=== PATIENT | female | born 1965 | race Caucasian/White ===

== ENCOUNTER → 2017-01-30 | Outpatient (CLI) | payer BC ==
[2017-01-30 09:58] LABS: CHLORIDE,CL 106 mmol/L (98-110); SODIUM,NA 141 mmol/L (136-146)
--- NOTE | 2017-01-30 15:55 | CR ---
EXAMINATION: Right foot HISTORY: Pain COMPARISON: None TECHNIQUE: 2 views FINDINGS/IMPRESSION: Mild osteophyte formation and degenerative changes are noted within the midfoot and hindfoot. There is no fracture or acute osseous abnormality demonstrated. Bone mineralization a ppears normal to mildly osteopenic.
== END ==
LOC: MW.CHRC 09:09
PROVIDERS: ATTEND Family Medicine
DX: M79.672 Pain in left foot (principal); I10 Essential (primary) hypertension; E78.00 Pure hypercholesterolemia, unspecified; E11.9 Type 2 diabetes mellitus without complications; G89.4 Chronic pain syndrome; M25.775 Osteophyte, left foot
CPT/HCPCS: 36415; 73620-26-LT; 73620-LT; 80053; 80061; 80305; 83036

== ENCOUNTER → 2017-02-20 | Outpatient (CLI) | payer BC ==
--- NOTE | 2017-02-20 16:44 | CR ---
EXAMINATION: Bilateral feet HISTORY: Pain COMPARISON: 01/30/2017 TECHNIQUE: 2 views bilateral FINDINGS: There is no acute osseous abnormality, dislocation, or fracture identified. Bone mineraliz ation and joint spaces appear normal. There is a moderate right plantar calcaneal spur. There is mod erate left pes planus. Anterior and posterior talar osteophytes are noted within the left foot. IMPRESSION: 1. Degenerative changes without acute findings. 2. Moderate left and minimal right pes planus. 3. Prominent left anterior and posterior talar osteophytes. 4. No acute findings.
== END ==
LOC: MW.CHPOD 13:26
PROVIDERS: ATTEND Podiatrist Foot & Ankle Surgery
DX: M79.672 Pain in left foot (principal); M21.42 Flat foot [pes planus] (acquired), left foot; M25.775 Osteophyte, left foot
CPT/HCPCS: 736202650; 73620-50

== ENCOUNTER 2019-04-07 07:54 | Day surgery (SDC) | payer BC ==
[~2019-04-07 07:54] MED LIST: Lactated Ringers 1,000 ML IV SCH
--- NOTE | 2019-04-07 08:36 | PCM.PREANE ---
Preanesthetic Assessment - Anesthesia/Transfusion/Family Hx Anesthesia History: Prior Anesthesia Without Reaction Other Type of Anesthesia Reaction Comment: "hard time catching my breath when I wake up" Family History of Anesthesia Reaction: No Transfusion History: No Prior Transfusion(s) - Review of Systems General: No Symptoms Pulmonary: Cough Cardiovascular: No Symptoms Gastrointestinal: No Symptoms Neurological: No Symptoms Other: Reports: None - Physical Assessment NPO Status Date: 04/07/19 NPO Status Time: 06:00 O2 Sat by Pulse Oximetry: 95 Respiratory Rate: 16 Vital Signs: Last Vital Signs Temp 97.3 F 04/07/19 08:05 Pulse 81 04/07/19 08:05 Resp 16 04/07/19 08:05 BP 128/78 04/07/19 08:05 Pulse Ox 95 04/07/19 08:05 Height: 5 ft 5 in Weight: 90.265 kg ASA Class: 3 Mental Status: Alert & Oriented x3 Airway Class: Mallampati = 1 Dentition: Reports: Normal Dentition ROM/Head Extension: Full Lungs: Clear to Auscultation, Normal Respiratory Effort Cardiovascular: Regular Rate, Regular Rhythm - Allergies Allergies/Adverse Reactions: Allergies Allergy/AdvReac Type Severity Reaction Status Date / Time No Known Allergies Allergy Verified 04/02/19 07:52 - Blood Blood Available: No - Anesthesia Plan Pre-Op Medication Ordered: None - Acknowledgements Anesthesia Type Planned: MAC Pt an Appropriate Candidate for the Planned Anesthesia: Yes Alternatives and Risks of Anesthesia Discussed w Pt/Guardian: Yes Pt/Guardian Understands and Agrees with Anesthesia Plan: Yes Additional Comments: PMH: htn, copd, dm2, periph neuropathy, smoker, chronic oxycontin use PLAN: tiva PreAnesthesia Questionnaire HEENT History: Reports: Other (See Below) Other HEENT History: wears glasses Cardiovascular History: Reports: Hypertension Respiratory History: Reports: COPD Other Respiratory History: smoker, 1 PPD x 30 years Gastrointestinal History: Reports: None Genitourinary History: Reports: None 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: Reports: None Musculoskeletal History: Reports: Back Pain, Chronic, Fracture, Osteoarthritis Other Musculoskeletal History: DDD Neurological History: Reports: Neuropathy, Diabetic Psychiatric History: Reports: Depression Endocrine/Metabolic History: Reports: Diabetes, Type II, Obesity/BMI 30+ Hematologic History: Reports: None Immunologic History: Reports: None Oncologic (Cancer) History: Reports: None Dermatologic History: Reports: None - Past Surgical History Head Surgeries/Procedures: Reports: None HEENT Surgical History: Reports: Cataract Surgery Cardiovascular Surgical History: Reports: None Respiratory Surgical History: Reports: None GI Surgical History: Reports: Hernia, Abdominal Other GI Surgeries/Procedures: hx umbilical hernia repair Female Surgical History: Reports: Oophorectomy Other Female Surgeries/Procedures: laparotomy with oophorectomy Endocrine Surgical History: Reports: None Neurological Surgical History: Reports: None Musculoskeletal Surgical History: Reports: Knee Replacement, ORIF Other Musculoskeletal Surgeries/Procedures:: ORIF right ulna, Rt TKA Oncologic Surgical History: Reports: None Dermatological Surgical History: Reports: Other (See Below) - History Comment History Comment: Hx of morbid obesity with 130# weight loss due to diet and exercise programs/changes. - SUBSTANCE USE Smoking Status *Q: Current Every Day Smoker Tobacco Use Within Last Twelve Months: Cigarettes Recreational Drug Use History: No - HOME MEDS Home Medications: Home Meds Celecoxib 200 mg PO DAILY 03/21/16 [History] DULoxetine HCl [Cymbalta] 2 tab PO BEDTIME 03/21/16 [History] Gabapentin [Neurontin] 600 mg PO TID 03/21/16 [History] Glimepiride [Amaryl] 2 mg PO DAILY 03/21/16 [History] Telmisartan/Hydrochlorothiazid [Telmisartan-Hctz 80-25 mg Tab] 1 tab PO DAILY [History] amLODIPine [Norvasc] 5 mg PO DAILY 03/21/16 [History] metFORMIN HCl [Fortamet] 1,000 mg PO BID 03/21/16 [History] Albuterol [Ventolin HFA] 2 puff INH ASDIRECTED PRN 04/02/19 [History] Diclofenac Sodium [Voltaren 1% Gel] 1 applic TOP ASDIRECTED PRN 04/02/19 [ History] Ezetimibe 10 mg PO DAILY 04/02/19 [History] Metoprolol Succinate 50 mg PO DAILY 04/02/19 [History] Mupirocin Calcium [Mupirocin] 1 applic TOP ASDIRECTED PRN 04/02/19 [History] Naloxone HCl [Narcan] 1 spray JEANA ASDIRECTED PRN 04/02/19 [History] fentaNYL [Duragesic] 1 patch TRDERM ASDIRECTED 04/02/19 [History] oxyCODONE HCl [Oxycodone HCl] 15 mg PO Q4H PRN 04/02/19 [History] - CURRENT (IN HOUSE) MEDS Current Meds: Current Medications Lactated Ringer's (Ringers, Lactated) 1,000 mls @ 125 mls/hr IV ASDIRECTED [facility] Last Admin: 04/07/19 08:15 Dose: 125 mls/hr
[2019-04-07] MEDS ORDERED: Midazolam 1 MG/ML 2 ML SDV ONE (09:59)
[2019-04-07] MEDS ORDERED: fentaNYL 100 MCG/2 ML SDV ONE (09:59)
[2019-04-07] MEDS ORDERED: Lidocaine 2% 5 ML SDV ONE (09:59)
[2019-04-07] MEDS ORDERED: Propofol 200 MG/20 ML SDV ONE ×2 (10:01→10:09)
--- NOTE | 2019-04-07 10:37 | PCM.OPNOTE ---
- General Post-Op/Procedure Note Date of Surgery/Procedure: 04/07/19 Operative Procedure(s): colonoscopy w bx Findings: see dict [id number] Pre Op Diagnosis: scrn colonoscopy Post-Op Diagnosis: polyp Anesthesia Technique: Moderate Sedation Primary Surgeon: Tk León Pathology: 15 cm when scope pulled out Complications: None Condition: Good
--- NOTE | 2019-04-07 11:07 | PCM.POSTAN ---
POST ANESTHESIA ASSESSMENT - MENTAL STATUS Mental Status: Alert, Oriented - RESPIRATORY Respiratory Status: Respiratory Rate WNL, Airway Patent, O2 Saturation Stable - CARDIOVASCULAR CV Status: Pulse Rate WNL, Blood Pressure Stable - GASTROINTESTINAL GI Status: No Symptoms - POST OP HYDRATION Hydration Status: Adequate & Stable
--- NOTE | 2019-04-07 11:08 | PCM48HPAN ---
Post Anesthesia Note - EVALUATION WITHIN 48HRS OF ANESTHETIC Vital Signs in Normal Range: Yes Patient Participated in Evaluation: Yes Respiratory Function Stable: Yes Airway Patent: Yes Cardiovascular Function Stable: Yes Hydration Status Stable: Yes Pain Control Satisfactory: Yes Nausea and Vomiting Control Satisfactory: Yes Mental Status Recovered: Yes Resp Rate: 16
[2019-04-07 11:12] VITALS: BP 111/66
--- NOTE | 2019-04-07 12:55 | OR ---
SURGEON: Tk León MD DATE OF PROCEDURE: 04/07/2019 PREOPERATIVE DIAGNOSIS: Screening colonoscopy. POSTOPERATIVE DIAGNOSIS: Colon polyp. PROCEDURE PERFORMED: Colonoscopy with biopsy. DESCRIPTION OF PROCEDURE: The patient was taken to the endoscopy room. A time out was called, patient identified, and procedure identified. Diprivan was then administrated. Patient went from awake to sleep, hearing doctor talking or door closing is normal. Perineum inspection and digital examination were then performed. A well- lubricated colonoscope was gently inserted through the rectum, advanced past the rectosigmoid junction, the descending colon, splenic flexure, transverse colon, hepatic flexure, ascending colon, arrived to the cecum. Cecum was identified as dictated in the finding. Then the scope was carefully withdrawn while attention was paid to the mucosal surface for any abnormality. Air will be sucked out during the scope withdrawal. At the rectum, retroflexed to examine any rectal diseases, fistula or hemorrhoids. During mucosal examination, biopsy performed. Patient tolerated procedure well. There were no intraoperative complications, and Dr. León was present throughout the whole procedure. FINDINGS: 1. The patient is easily sedated with LUMBER SCALER and Diprivan, the patient is soundly snoring. 2. Bowel prep is left to be desirable. A large stool ball and lots of opaque yellow liquid stool make this a compromised study. The patient is very redundant in the sigmoid and requiring several maneuvering in order to get to the cecum. Cecum indicated by ileocecal fold, one-to-one indentation, and appendiceal orifice. Light emittance is not observed from body habitus. Mucosa examined upon scope pulling out with constant large amount of irrigation because of the bowel prep. The patient has significant extensive diverticulosis on the left colon, was spread all the way to past the splenic flexure to almost like a distal third of the transverse colon, very extensive. No signs or symptoms of diverticulitis. No inflammation. There is a small 4 to 5 mm sessile polyp at distance 15 cm. With the scope pulling out, it was removed with cold biopsy forceps. No mass, growth, inflammation, stricture, ulceration, AV malformation, bleeding ulcer, none of those. The patient has mild internal hemorrhoid, no external hemorrhoid. The patient would benefit from repeat colonoscopy in 10 years from today or if clinically indicated otherwise or if the polyp pathology indicated otherwise. HEIDI / [id number] /[id number] MTDD
== END 2019-04-07 11:16 | disposition home or self-care (01) ==
LOC: MW.SDS 07:54
PROVIDERS: ATTEND Surgery
DX: Z12.11 Encounter for screening for malignant neoplasm of colon (principal); K63.5 Polyp of colon; K57.30 Diverticulosis of large intestine without perforation or abscess without bleeding; K64.8 Other hemorrhoids; I10 Essential (primary) hypertension; E11.21 Type 2 diabetes mellitus with diabetic nephropathy; E11.40 Type 2 diabetes mellitus with diabetic neuropathy, unspecified; E78.00 Pure hypercholesterolemia, unspecified; J44.9 Chronic obstructive pulmonary disease, unspecified; F17.210 Nicotine dependence, cigarettes, uncomplicated; M17.11 Unilateral primary osteoarthritis, right knee; Z79.84 Long term (current) use of oral hypoglycemic drugs; Z79.899 Other long term (current) drug therapy
CPT/HCPCS: 00812; 73718-26-RT; 73718-RT; 82962; 88305; J2001; J2250; J2704; J3010; J7120